=== PATIENT | male | born 1970 | race Caucasian/White ===

== ENCOUNTER 2020-11-29 12:23 | Emergency (ER) | payer BC ==
[2020-11-29] MEDS ORDERED: EPINEPHrine 1 MG/10 ML Abboject SYRINGE ONE (12:55)
[2020-11-29] MEDS ORDERED: Lidocaine 1% PF 5 ML VIAL ONE (12:56)
[2020-11-29] MEDS ORDERED: ceFAZolin 2 GM/DEX 5% 100 ML BAG ONE (12:59)
[2020-11-29] MEDS ORDERED: Boostrix 0.5 ML (Tdap) VIAL ONE (13:44)
== END 2020-11-29 14:35 | disposition short-term general hospital (02) ==
LOC: ERS 12:23
DX: S68.011A Complete traumatic metacarpophalangeal amputation of right thumb, initial encounter (principal); Z23 Encounter for immunization; W23.0XXA Caught, crushed, jammed, or pinched between moving objects, initial encounter; Y92.79 Other farm location as the place of occurrence of the external cause; Y99.0 Civilian activity done for income or pay
CPT/HCPCS: 64450; 90471; 90715; 96374; J0171